=== PATIENT | female | born 1985 | race Caucasian/White ===

== ENCOUNTER 2020-10-09 16:00 | Emergency (ER) | payer SELFPAY ==
[2020-10-09] VITALS (9 sets, daily range): BP systolic 94–134; BP diastolic 63–74; PULSE 57–90; RESP 9–33; TEMP 36.6; O2SAT 97–100; BMI 23.2
--- NOTE | 2020-10-09 16:18 | DI.RAD.S_ITS ---
PROCEDURE: XR CHEST 2V INDICATIONS: chest pain TECHNIQUE: 2 views of the chest were acquired. COMPARISON: None. FINDINGS: Surgical changes and devices: None. Lungs and pleura: Lungs are clear. No pleural effusions or pneumothorax. Mediastinum: Mediastinal contours are normal. Heart size is normal. Bones and chest wall: No suspicious bony abnormalities. Soft tissues appear unremarkable. IMPRESSION: No acute cardiopulmonary pathology. Dictated by: Sai Martins M.D. on 10/09/2020 at 17:02 Approved by: Sai Martins M.D. on 10/09/2020 at 17:02
[2020-10-09 16:34] LABS: Add Manual Diff / Slide Review NO; Basophils Absolute Auto 100 /uL (0-100); Basophils Percent Auto 0.8 % (0-2); Eosinophils Absolute Auto 200 /uL (0-450); Lymphocytes Absolute Auto 2200 /uL (1100-4500); Lymphocytes Percent Auto 30.2 % (25-40); Mean Corpuscular HGB Conc 32.6 % (30-36); Mean Corpuscular Hemoglobin 29.7 PG (26-34); Monocytes Absolute Auto 500 /uL (0-900); Monocytes Percent Auto 7.4 % (3-14); Neutrophils Absolute Auto 4300 /uL (1500-7000); Neutrophils Percent Auto 58.6 % (50-75); Platelet Count 218 X10^3/uL (150-400); Red Blood Cell Count 4.72 X10^6/uL (4.0-5.2); Red Cell Distribution Width 13.3 % (11.6-14.8); White Blood Cell Count 7.3 X10^3/uL (4.5-11.0)
--- NOTE | 2020-10-09 16:35 | ED.CHESTPAIN ---
HPI - Chest Pain <GIBSON Carcamo - Last Filed: 10/09/20 20:33> General Chief Complaint: Chest Pain Stated Complaint: heart palputations/chest pains Time Seen by Provider: 10/09/20 16:08 Source: patient Mode of arrival: Ambulatory History of Present Illness HPI narrative: 35yo female with a history of bipolar and anxiety, currently taking lithium, presents to the ED heart palpitations that have been ongoing for about a week. She states this has been worse over the past 1-2 days. She states she feels like her heart is beating very fast and occasionally skips a beat. Patient states this happens 3 4 times a day in approximately last 3 hours. Patient states she notices that she is more winded and short of breath with exertion. Today she carried some trays up the steps which normally does not phase her but she had to stop and catch her breath. Patient states earlier today she had some chest pressure and burning. Patient denies any symptoms at this time. She denies any cough, dizziness, abdominal pain, nausea, vomiting, diarrhea, or any other concerns. Related Data Home Medications Medication Instructions Recorded Confirmed trazodone 25 - 50 mg PO BEDTIME PRN #0 05/24/17 10/09/20 lithium carbonate 450 mg PO BID 10/09/20 10/09/20 lorazepam [Ativan] 0.5 - 1 mg PO DAILY PRN 10/09/20 10/09/20 risperidone 1 mg PO DAILY 10/09/20 10/09/20 Allergies Allergy/AdvReac Type Severity Reaction Status Date / Time sumatriptan Allergy Severe CORONARY Verified 10/09/20 16:18 ARTERY SPASMS Sulfa (Sulfonamide Allergy Mild RASH Verified 10/09/20 16:18 Antibiotics) Review of Systems <GIBSON Carcamo - Last Filed: 10/09/20 20:33> Review of Systems Narrative: REVIEW OF SYSTEMS: GENERAL: Denies fever or chills. HENT: No head trauma. EYES: No loss of vision, double vision, eye pain, or irritation. CARDIOVASCULAR: Report heart palpitations, see HPI. RESPIRATORY: No shortness of breath or cough. GASTROINTESTINAL: No nausea, vomiting, diarrhea, or constipation. GENITOURINARY: No flank pain or dysuria. MUSCULOSKELETAL: No pain. INTEGUMENTARY: No rash. NEURO: No numbness or tingling. PSYCH: No behavior or mood changes. Patient History <GIBSON Carcamo - Last Filed: 10/09/20 20:33> Medical History Anxiety Family History Mother Parkinsons disease Social History Smoking Status: Current some day smoker Smoking Status: Current some day smoker tobacco type: vaping alcohol intake frequency: other Substance Use Type: does not use Exam <GIBSON Carcamo - Last Filed: 10/09/20 20:33> Initial Vital Signs Initial Vital Signs: Vital Signs Pulse Rate 90 10/09/20 16:04 Blood Pressure 134/74 10/09/20 16:04 Pulse Oximetry 99 10/09/20 16:04 PHYSICAL EXAMINATION: GENERAL: Well-appearing 35-year-old female. Alert and oriented. HENT: Normocephalic, atraumatic. Ear canals patent. Oral mucosa is pink and moist. EYES: Conjunctiva pink, sclera white, no periorbital swelling. CHEST: Normal to inspection and without deformities. CARDIOVASCULAR: S1 and S2 sounds normal. Regular rate and rhythm, no murmurs, clicks, or bruits. No pedal edema. RESPIRATORY: Normal respiratory rate, trachea midline, airway patent. No stridor, nasal flaring or accessory muscle use. Lungs are clear in all haley without wheeze, rhonchi, or crackles. GASTROINTESTINAL: Bowel sounds normoactive. Abdomen is soft and non-tender. No organomegaly. MUSCULOSKELETAL: Normal gait and coordination. Equal tone and mass bilaterally. EXTREMITIES: CMS intact. Moves all extremities. SKIN: Warm, dry, soft, appropriate color for ethnicity. No lesions, rashes, or wounds. NEURO: Alert and Oriented X 3. Good coordination. No ataxia, or sensory deficits, or cognitive issues. PSYCH: Appropriate affect and mood. <Irina Cehn DO - Last Filed: 10/10/20 07:38> Initial Vital Signs Initial Vital Signs: Vital Signs Pulse Rate 90 10/09/20 16:04 Blood Pressure 134/74 10/09/20 16:04 Pulse Oximetry 99 10/09/20 16:04 Scores <GIBSON Carcamo - Last Filed: 10/09/20 20:33> PERC Score Age greater than or equal to 50 years: No Heart rate greater than or equal to 100 bpm: No Room Air O2 Sat less than 95%: No Unilateral leg swelling: No Recent trauma or surgery: No Hemoptysis: No Prior PE or DVT: No Hormone Use: No Total PERC Score: 0 Wells' Criteria for PE Clinical signs and symptoms of DVT: No PE is #1 Dx or equally likely: No Heart rate > 100: No Immobilization at least 3 days or surg in previous 4 weeks: No History of PE or DVT: No Hemoptysis: No Malignancy w/Treatment within 6 months or palliative: No Wells' PE Score total: 0 Course <GIBSON Carcamo - Last Filed: 10/09/20 20:33> Course Course Narrative: Patient continued to deny symptoms throughout the entire emergency department stay. Orders Ordered: ED Orders 10/09/20 16:15 Complete Blood Count AUTO DIFF Stat Comprehensive Metabolic Panel Stat D Dimer Stat Ponderay Stat Thyroid Stimulating Hormone Stat Troponin & CK Cardiac Panel Stat 10/09/20 16:18 Chest [XR chest 2V] Stat EKG-12 Lead Stat Vital Signs Vital signs: Vital Signs - 8 hr 10/09/20 16:04 10/09/20 16:09 10/09/20 16:30 Temperature 98 F Pulse Rate 90 80 75 Respiratory Rate 16 24 Blood Pressure 134/74 134/74 Pulse Oximetry 99 100 100 10/09/20 16:37 10/09/20 17:00 10/09/20 17:30 Temperature Pulse Rate 72 63 57 L Respiratory Rate 9 L 29 H 29 H Blood Pressure 106/64 99/66 94/63 Pulse Oximetry 100 99 100 10/09/20 18:00 10/09/20 18:19 10/09/20 18:30 Temperature Pulse Rate 64 72 66 Respiratory Rate 33 H 22 25 H Blood Pressure 111/69 94/69 Pulse Oximetry 98 97 100 <Irina Chen DO - Last Filed: 10/10/20 07:38> Orders Ordered: ED Orders 10/09/20 16:15 Complete Blood Count AUTO DIFF Stat Comprehensive Metabolic Panel Stat D Dimer Stat Ponderay Stat Thyroid Stimulating Hormone Stat Troponin & CK Cardiac Panel Stat 10/09/20 16:18 Chest [XR chest 2V] Stat EKG-12 Lead Stat Vital Signs Vital signs: Vital Signs - 8 hr 10/09/20 16:04 10/09/20 16:09 10/09/20 16:30 Temperature 98 F Pulse Rate 90 80 75 Respiratory Rate 16 24 Blood Pressure 134/74 134/74 Pulse Oximetry 99 100 100 10/09/20 16:37 10/09/20 17:00 10/09/20 17:30 Temperature Pulse Rate 72 63 57 L Respiratory Rate 9 L 29 H 29 H Blood Pressure 106/64 99/66 94/63 Pulse Oximetry 100 99 100 10/09/20 18:00 10/09/20 18:19 10/09/20 18:30 Temperature Pulse Rate 64 72 66 Respiratory Rate 33 H 22 25 H Blood Pressure 111/69 94/69 Pulse Oximetry 98 97 100 MDM - Chest Pain <GIBSON Carcamo - Last Filed: 10/09/20 20:33> Medical Records Data Attestation: I reviewed the patient's medical records. Lab Data Attestation: I reviewed the patient's lab results. Result diagrams: 10/09/20 16:15 10/09/20 16:15 Labs: Lab Results 10/09/20 10/09/20 10/09/20 Range/Units 16:15 16:15 16:15 WBC 7.3 (4.5-11.0) X10^3/uL RBC 4.72 (4.0-5.2) X10^6/uL Hgb 14.0 (12.0-16.0) g/dL Hct 43.0 (36-46) % MCV 91.0 (80-100) fL MCH 29.7 (26-34) PG MCHC 32.6 (30-36) % RDW 13.3 (11.6-14.8) % Plt Count 218 (150-400) X10^3/uL Neut % (Auto) 58.6 (50-75) % Lymph % (Auto) 30.2 (25-40) % Dubois % (Auto) 7.4 (3-14) % Eos % (Auto) 3.0 (2-4) % Baso % (Auto) 0.8 (0-2) % Neut # (Auto) 4300 (2628-0728) /uL Lymph # (Auto) 2200 (8046-9911) /uL Dubois # (Auto) 500 (0-900) /uL Eos # (Auto) 200 (0-450) /uL Baso # (Auto) 100 (0-100) /uL D-Dimer < 200 (<230) ng/mL Sodium 138 (137-145) mmol/L Potassium 4.0 (3.4-5.1) mmol/L Chloride 105 (98-107) mmol/L Carbon Dioxide 28 (22-32) mmol/L BUN 10 (7-17) mg/dL Creatinine 0.48 L (0.52-1.04) mg/dL Estimated GFR > 60.0 (>60) mL/min BUN/Creatinine Ratio 20.8 (6-22) Glucose 85 (70-100) mg/dL Calcium 9.3 (8.4-10.2) mg/dL Total Bilirubin 0.4 (0.2-1.3) mg/dL AST 64 H (14-36) IU/L ALT 90 H (<35) IU/L Alkaline Phosphatase 56 (38-126) U/L Total Creatine Kinase 35 (30-135) U/L CK-MB (CK-2) TNP CK-MB (CK-2) Rel Index TNP Troponin I < 0.012 (0.01-0.034) ng/mL Total Protein 7.0 (6.3-8.2) g/dL Albumin 4.4 (3.5-5.0) g/dL Globulin 2.6 (1.7-4.1) g/dL Albumin/Globulin Ratio 1.7 (1.0-2.8) TSH (0.47-4.68) uIU/mL Ponderay (0.6-1.2) mmol/L 12/16/20 Range/Units 16:15 WBC (4.5-11.0) X10^3/uL RBC (4.0-5.2) X10^6/uL Hgb (12.0-16.0) g/dL Hct (36-46) % MCV (80-100) fL MCH (26-34) PG MCHC (30-36) % RDW (11.6-14.8) % Plt Count (150-400) X10^3/uL Neut % (Auto) (50-75) % Lymph % (Auto) (25-40) % Dubois % (Auto) (3-14) % Eos % (Auto) (2-4) % Baso % (Auto) (0-2) % Neut # (Auto) (5458-2897) /uL Lymph # (Auto) (1102-8900) /uL Dubois # (Auto) (0-900) /uL Eos # (Auto) (0-450) /uL Baso # (Auto) (0-100) /uL D-Dimer (<230) ng/mL Sodium (137-145) mmol/L Potassium (3.4-5.1) mmol/L Chloride (98-107) mmol/L Carbon Dioxide (22-32) mmol/L BUN (7-17) mg/dL Creatinine (0.52-1.04) mg/dL Estimated GFR (>60) mL/min BUN/Creatinine Ratio (6-22) Glucose (70-100) mg/dL Calcium (8.4-10.2) mg/dL Total Bilirubin (0.2-1.3) mg/dL AST (14-36) IU/L ALT (<35) IU/L Alkaline Phosphatase (38-126) U/L Total Creatine Kinase (30-135) U/L CK-MB (CK-2) CK-MB (CK-2) Rel Index Troponin I (0.01-0.034) ng/mL Total Protein (6.3-8.2) g/dL Albumin (3.5-5.0) g/dL Globulin (1.7-4.1) g/dL Albumin/Globulin Ratio (1.0-2.8) TSH 2.66 (0.47-4.68) uIU/mL Ponderay 0.4 L (0.6-1.2) mmol/L Imaging Data Chest x-ray: Radiologist's Impression: [address] [id number] ReportSigned Patient: Della Wilder NMR#: [id number]: 1985Acct:[id number]/Sex: 35 / FDate of Service: 10/09/20Loc: EDAccession Number: [id number] Procedure: XR chest 2V Ordering Provider: Macey Pruett PROCEDURE: XR CHEST 2V INDICATIONS: chest pain TECHNIQUE: 2 views of the chest were acquired. COMPARISON: None. FINDINGS: Surgical changes and devices: None. Lungs and pleura: Lungs are clear. No pleural effusions or pneumothorax. Mediastinum: Mediastinal contours are normal. Heart size is normal. Bones and chest wall: No suspicious bony abnormalities. Soft tissues appear unremarkable. IMPRESSION: No acute cardiopulmonary pathology. Dictated by: Sai Martins M.D. on 10/09/2020 at 17:02 Approved by: Sai Martins M.D. on 10/09/2020 at 17:02 ECG Data Interpretation: 1610: Sinus rhythm, rate 71, AR interval 176, QTC 408. No ST elevation or ST depression. T-wave inversion noted in V1and a small t-wave inverson noted in V2. No ectopy. EKG also viewed by Dr. Chen per protocol. MDM Narrative Medical decision making narrative: 35-year-old female presents to the emergency department for intermittent heart palpitations. I am unsure the exact cause of this, may be related to anxiety. However, less likely electrical etiology as patient's EKG is within normal limits, no PVCs noted. No abnormalities noted monitor during her stay. Chest x-ray is negative for any acute findings. Thyroid, electrolytes, and troponin within normal limits. Ponderay slightly low, she mention that she ended up skin pain a few doses as she was waiting for her refill. This most likely explains this lab level. Less likely PE given patient is non tachycardic, non hypoxic, D-dimer is negative, PERC 0 and was criteria 0. She is well appearing, no signs of infection. She was encouraged to follow up with PCP in discussed further testing if indicated such as a Holter monitor. Return precautions given for new or worsening symptoms. She agrees plan of care verbalized understanding. <Irina Chen, DO - Last Filed: 10/10/20 07:38> Lab Data Attestation: I reviewed the patient's lab results. Labs: Lab Results 10/09/20 10/09/20 10/09/20 Range/Units 16:15 16:15 16:15 WBC 7.3 (4.5-11.0) X10^3/uL RBC 4.72 (4.0-5.2) X10^6/uL Hgb 14.0 (12.0-16.0) g/dL Hct 43.0 (36-46) % MCV 91.0 (80-100) fL MCH 29.7 (26-34) PG MCHC 32.6 (30-36) % RDW 13.3 (11.6-14.8) % Plt Count 218 (150-400) X10^3/uL Neut % (Auto) 58.6 (50-75) % Lymph % (Auto) 30.2 (25-40) % Dubois % (Auto) 7.4 (3-14) % Eos % (Auto) 3.0 (2-4) % Baso % (Auto) 0.8 (0-2) % Neut # (Auto) 4300 (6562-6165) /uL Lymph # (Auto) 2200 (8950-2942) /uL Dubois # (Auto) 500 (0-900) /uL Eos # (Auto) 200 (0-450) /uL Baso # (Auto) 100 (0-100) /uL D-Dimer < 200 (<230) ng/mL Sodium 138 (137-145) mmol/L Potassium 4.0 (3.4-5.1) mmol/L Chloride 105 (98-107) mmol/L Carbon Dioxide 28 (22-32) mmol/L BUN 10 (7-17) mg/dL Creatinine 0.48 L (0.52-1.04) mg/dL Estimated GFR > 60.0 (>60) mL/min BUN/Creatinine Ratio 20.8 (6-22) Glucose 85 (70-100) mg/dL Calcium 9.3 (8.4-10.2) mg/dL Total Bilirubin 0.4 (0.2-1.3) mg/dL AST 64 H (14-36) IU/L ALT 90 H (<35) IU/L Alkaline Phosphatase 56 (38-126) U/L Total Creatine Kinase 35 (30-135) U/L CK-MB (CK-2) TNP CK-MB (CK-2) Rel Index TNP Troponin I < 0.012 (0.01-0.034) ng/mL Total Protein 7.0 (6.3-8.2) g/dL Albumin 4.4 (3.5-5.0) g/dL Globulin 2.6 (1.7-4.1) g/dL Albumin/Globulin Ratio 1.7 (1.0-2.8) TSH (0.47-4.68) uIU/mL Ponderay (0.6-1.2) mmol/L 12/16/20 Range/Units 16:15 WBC (4.5-11.0) X10^3/uL RBC (4.0-5.2) X10^6/uL Hgb (12.0-16.0) g/dL Hct (36-46) % MCV (80-100) fL MCH (26-34) PG MCHC (30-36) % RDW (11.6-14.8) % Plt Count (150-400) X10^3/uL Neut % (Auto) (50-75) % Lymph % (Auto) (25-40) % Dubois % (Auto) (3-14) % Eos % (Auto) (2-4) % Baso % (Auto) (0-2) % Neut # (Auto) (4598-8124) /uL Lymph # (Auto) (1165-0876) /uL Dubois # (Auto) (0-900) /uL Eos # (Auto) (0-450) /uL Baso # (Auto) (0-100) /uL D-Dimer (<230) ng/mL Sodium (137-145) mmol/L Potassium (3.4-5.1) mmol/L Chloride (98-107) mmol/L Carbon Dioxide (22-32) mmol/L BUN (7-17) mg/dL Creatinine (0.52-1.04) mg/dL Estimated GFR (>60) mL/min BUN/Creatinine Ratio (6-22) Glucose (70-100) mg/dL Calcium (8.4-10.2) mg/dL Total Bilirubin (0.2-1.3) mg/dL AST (14-36) IU/L ALT (<35) IU/L Alkaline Phosphatase (38-126) U/L Total Creatine Kinase (30-135) U/L CK-MB (CK-2) CK-MB (CK-2) Rel Index Troponin I (0.01-0.034) ng/mL Total Protein (6.3-8.2) g/dL Albumin (3.5-5.0) g/dL Globulin (1.7-4.1) g/dL Albumin/Globulin Ratio (1.0-2.8) TSH 2.66 (0.47-4.68) uIU/mL Ponderay 0.4 L (0.6-1.2) mmol/L ECG Data Attestation: I personally reviewed and interpreted this ECG as follows: Prior ECG tracings: not available for review Interpretation: NSR, rate 71, pr 176, qrs 93, qtc 420. NO ST changes appreciated. Discharge Plan Departure Patient Disposition: Home Clinical Impression: Heart palpitations Instructions: DI for Palpitations Activity Restrictions/Additional Instructions: Thank you for entrusting me with your care today. As discussed, your chest x-ray, laboratory work, and EKG are non-remarkable. I am unsure the exact cause of your heart palpitations. However, I do suggest following up with your primary care provider and discussing indications for a ZIO patch/Holter monitor. Return to the emergency department for any new or worsening symptoms. Prescriptions: No Action trazodone 50 MG tablet 25 - 50 mg PO BEDTIME PRN (Reason: Sleep) Qty: 0 RF: 0 lithium carbonate 450 mg Tablet Extended Release 450 mg PO BID RF: 0 risperidone 1 mg Tablet 1 mg PO DAILY RF: 0 lorazepam [Ativan] 0.5 mg Tablet 0.5 - 1 mg PO DAILY PRN (Reason: Anxiety) RF: 0 <Irina Chen DO - Last Filed: 10/10/20 07:38> Cosign ED Attending Cosignature Attestation: I was immediately available in the department for consultation. This documentation has been reviewed and I agree with assessment and plan. Labs, imaging, and EKG reviewed and agree with plan. Supervised by Irina Chen DO
[2020-10-09 16:43] LABS: Alanine Aminotransferase 90 IU/L (<35); Albumin 4.4 g/dL (3.5-5.0); Albumin Globulin Ratio 1.7 (1.0-2.8); Alkaline Phosphatase 56 U/L (38-126); Aspartate Aminotransferase 64 IU/L (14-36); BUN Creatinine Ratio 20.8 (6-22); Bilirubin Total 0.4 mg/dL (0.2-1.3); Blood Urea Nitrogen 10 mg/dL (7-17); Calcium 9.3 mg/dL (8.4-10.2); Carbon Dioxide 28 mmol/L (22-32); Chloride 105 mmol/L (98-107); Creatine Kinase 35 U/L (30-135); Estimated Glomerular Filt Rate > 60.0 mL/min (>60); Globulin 2.6 g/dL (1.7-4.1); Glucose 85 mg/dL (70-100); HEMOLYSIS < 15 (0-50); Sodium 138 mmol/L (137-145)
[2020-10-09 16:46] LABS: D Dimer < 200 ng/mL (<230)
[2020-10-09 16:47] LABS: Lithium 0.4 mmol/L (0.6-1.2)
[2020-10-09 16:54] LABS: Troponin I < 0.012 ng/mL (0.01-0.034)
[2020-10-09 17:23] LABS: Thyroid Stimulating Hormone 2.66 uIU/mL (0.47-4.68)
== END 2020-10-09 18:37 | disposition home or self-care (01) ==
PROVIDERS: Emergency Provider Nurse Practitioner
DX: R00.2 Palpitations (principal); R07.9 Chest pain, unspecified; F31.9 Bipolar disorder, unspecified; F41.9 Anxiety disorder, unspecified
CPT/HCPCS: 36415; 71046; 80053; 80178; 82550; 84443; 84484; 85025; 85379; 93005; 93010; 99283; 99284